=== PATIENT | male | born 1985 | race Caucasian/White ===

== ENCOUNTER 2018-10-09 06:51 | Emergency (ER) | payer OTHER, SELFPAY ==
[2018-10-09 07:09] VITALS: BP 148/91; PULSE 72; RESP 20; TEMP 36.4; O2SAT 98; BMI 32.5
--- NOTE | 2018-10-09 07:13 | DI.RAD.S_ITS ---
PROCEDURE: XR CHEST 2V INDICATIONS: cough TECHNIQUE: 2 views of the chest were acquired. COMPARISON: None. FINDINGS: Surgical changes and devices: None. Lungs and pleura: No pleural effusions or pneumothorax. Lungs are clear. Mediastinum: Mediastinal contours are normal. Heart size is normal. Bones and chest wall: No suspicious bony abnormalities. Soft tissues appear unremarkable. IMPRESSION: No acute cardiopulmonary findings. Dictated by: Yasemin Pat M.D. on 10/09/2018 at 8:01 Approved by: Yasemin Pat M.D. on 10/09/2018 at 8:02
--- NOTE | 2018-10-09 07:29 | ED.URI ---
HPI - URI/Sore Throat General Chief Complaint: Upper Respiratory Symptoms Stated Complaint: Cold X 1 mo, sinus pressure unable to sleep Time Seen by Provider: 10/09/18 07:21 Source: patient Mode of arrival: ambulatory Limitations: no limitations History of Present Illness HPI Narrative: This is a 33-year-old male who comes to the emergency department complaint of upper respiratory infection but also chest cold. Patient states a month ago he started having cold in his chest, he had a cough that slowly improved but never resolved. He had vomiting and diarrhea for about 48 hr and then not resolved. Since then he started having drainage from his nose that is been green was sometimes black flecks, he states that he has been very stuffy and had sinus pressure and pain. He is not aware of any fevers. He has had fullness in his ears but no pain. He has not had any wound nausea, vomiting diarrhea or constipation. He denies any urinary issues. Patient states yesterday when he was playing with his kids he felt very short of breath. But walking are normal exertion does not bother him. Patient has been using a Neti pot, Sudafed as well as Mucinex without any improvement. Related Data Previous Rx's Medication Instructions Recorded azithromycin See Label Instructions .ROUTE 10/09/18 .COMPLEX #6 tab Allergies Allergy/AdvReac Type Severity Reaction Status Date / Time amoxicillin [AMOXICILLIN] Allergy Intermediate Unverified 01/13/18 12:36 sulfamethoxazole Allergy Intermediate Unverified 01/13/18 12:36 [From ] trimethoprim [From ] Allergy Intermediate Unverified 01/13/18 12:36 Review of Systems Review of Systems All systems reviewed & are unremarkable except as noted in HPI and below Constitutional Denies chills, Denies fever(s) and Denies headache(s) ENT Ears, Nose, Mouth, and Throat: Denies otalgia (Has pressure in years), Denies headache(s), Denies hoarseness, Reports nasal congestion, Reports nasal discharge, Reports post nasal drip, Reports sinus pain and Reports sinus pressure Cardiovascular Denies chest pain, Denies syncope, Denies edema, Reports dyspnea (once yesterday) and Denies dyspnea on exertion Respiratory Reports chest congestion, Reports cough, Denies hemoptysis, Denies pain on inspiration, Reports dyspnea (once yesterday), Denies dyspnea on exertion and Denies wheezing Gastrointestinal Gastrointestinal: Denies abdominal pain, Denies change in bowel habits, Denies diarrhea, Denies nausea and Denies vomiting Genitourinary Denies difficulty urinating Neurologic Denies syncope and Denies headache(s) Allergic/Immunologic Denies wheezing PFSH Medical History Hypothyroid (Acute) Surgical History Hx of appendectomy (Acute) Social History Smoking Status: Never smoker Exam Narrative Exam Narrative: GEN: well nourished, well appearing male, alert and oriented x 3, patient appears to be in mild distress. HEENT: Atraumatic, pupils are equal round reactive to light, extraocular movements are intact, nares have thick greenish drainage, TMs are clear with mild fluid bilaterally, no erythema, no bulge, there is no conjunctival pallor. Throat is clear without any exudates, erythema, tonsillar enlargement or uvular deviation, patient has tenderness over the sinuses bilaterally. HEART: Regular rate and rhythm without murmur, clicks, rubs. No carotid bruits, pulses are equal in upper and lower extremities LUNGS:Lungs clear to auscultation, no wheezes, rales, crackles, chest moves symmetrically, no CT tachypnea. No accessory muscle use. ABD:bowel sounds normal, soft, non-tender, no guarding, rebound, rigidity, no masses noted, no hepatosplenomegaly MSCL: Non-tender, no muscle atrophy, muscles strength 5/5 upper and lower extremities, full range of motion, normal gait NEURO:CN 2-12 intact, sensation normal Initial Vital Signs Initial Vital Signs: Vital Signs Temperature 97.6 F 10/09/18 07:09 Pulse Rate 72 10/09/18 07:09 Respiratory Rate 20 10/09/18 07:09 Blood Pressure 148/91 H 10/09/18 07:09 Pulse Oximetry 98 10/09/18 07:09 Course Orders Ordered: ED Orders 10/09/18 07:13 CXR [XR chest 2V] Stat Vital Signs - 8 hr 10/09/18 07:09 Temperature 97.6 F Pulse Rate 72 Respiratory Rate 20 Blood Pressure 148/91 H Pulse Oximetry 98 MDM - URI/Sore Throat Imaging Data Chest x-ray: Attestation: I personally reviewed and interpreted this imaging study as follows: My impression: no pneumonia, no infiltrate. no cardiomegaly, normal mediastinum, no fx, no pneumothorax noted. no free air. [facility] Narrative Medical decision making narrative: Patient has symptoms concerning for sinusitis. He has had about a month of symptoms with worsening and now purulent like a greenish discharge. Patient does have some changes on physical exam. He has been afebrile discussed adding Afrin to his Sudafed, Neti pot and Mucinex combination. He has also been using intranasal steroid treatment. If this is unsuccessful did give him a prescription to fill for antibiotics for sinusitis. Discharge Plan Departure Patient Disposition: Home Clinical Impression: Sinusitis Discharge Date/Time: 10/09/18 07:44 Interventions: ED Discharge Assessment Last Done: 10/09/18 07:43 Instructions: DI for Sinusitis Activity Restrictions/Additional Instructions: Follow up in 3-5 days if no improvement in symptoms. Call for an appointment. Take antibiotics until gone. Take 2 tablets together the first day, then 1 tablet daily x 4 days. Continue to use neti-pot, sudafed and mucinex for symptomatic treatment. Return to the emergency department for any fevers greater than 100.4, worsening symptoms, facial swelling, sudden severe headaches, persistent vomiting, difficulty breathing, chest pain or other new or concerning symptoms. Prescriptions: New azithromycin 250 mg tablet See Label Instructions .ROUTE .COMPLEX Qty: 6 RF: 0
--- NOTE | 2018-10-09 07:37 | ED_ITS ---
HPI - URI/Sore Throat General Chief Complaint: Upper Respiratory Symptoms Stated Complaint: Cold X 1 mo, sinus pressure unable to sleep Time Seen by Provider: 10/09/18 07:21 Source: patient Mode of arrival: ambulatory Limitations: no limitations History of Present Illness HPI Narrative: This is a 33-year-old male who comes to the emergency department complaint of upper respiratory infection but also chest cold. Patient states a month ago he started having cold in his chest, he had a cough that slowly improved but never resolved. He had vomiting and diarrhea for about 48 hr and then not resolved. Since then he started having drainage from his nose that is been green was sometimes black flecks, he states that he has been very stuffy and had sinus pressure and pain. He is not aware of any fevers. He has had fullness in his ears but no pain. He has not had any wound nausea, vomiting diarrhea or constipation. He denies any urinary issues. Patient states yesterday when he was playing with his kids he felt very short of breath. But walking are normal exertion does not bother him. Patient has been using a Neti pot, Sudafed as well as Mucinex without any improvement. Related Data Previous Rx's Medication Instructions Recorded azithromycin See Label Instructions .ROUTE 10/09/18 .COMPLEX #6 tab Allergies Allergy/AdvReac Type Severity Reaction Status Date / Time amoxicillin [AMOXICILLIN] Allergy Intermediate Unverified 01/13/18 12:36 sulfamethoxazole Allergy Intermediate Unverified 01/13/18 12:36 [From ] trimethoprim [From ] Allergy Intermediate Unverified 01/13/18 12:36 Review of Systems Review of Systems All systems reviewed & are unremarkable except as noted in HPI and below Constitutional Denies chills, Denies fever(s) and Denies headache(s) ENT Ears, Nose, Mouth, and Throat: Denies otalgia (Has pressure in years), Denies headache(s), Denies hoarseness, Reports nasal congestion, Reports nasal discharge, Reports post nasal drip, Reports sinus pain and Reports sinus pressure Cardiovascular Denies chest pain, Denies syncope, Denies edema, Reports dyspnea (once yesterday ) and Denies dyspnea on exertion Respiratory Reports chest congestion, Reports cough, Denies hemoptysis, Denies pain on inspiration, Reports dyspnea (once yesterday), Denies dyspnea on exertion and Denies wheezing Gastrointestinal Gastrointestinal: Denies abdominal pain, Denies change in bowel habits, Denies diarrhea, Denies nausea and Denies vomiting Genitourinary Denies difficulty urinating Neurologic Denies syncope and Denies headache(s) Allergic/Immunologic Denies wheezing PFSH Medical History Hypothyroid (Acute) Surgical History Hx of appendectomy (Acute) Social History Smoking Status: Never smoker Exam Narrative Exam Narrative: GEN: well nourished, well appearing male, alert and oriented x 3 , patient appears to be in mild distress. HEENT: Atraumatic, pupils are equal round reactive to light, extraocular movements are intact, nares have thick greenish drainage, TMs are clear with mild fluid bilaterally, no erythema, no bulge, there is no conjunctival pallor. Throat is clear without any exudates, erythema, tonsillar enlargement or uvular deviation, patient has tenderness over the sinuses bilaterally. HEART: Regular rate and rhythm without murmur, clicks, rubs. No carotid bruits , pulses are equal in upper and lower extremities LUNGS:Lungs clear to auscultation, no wheezes, rales, crackles, chest moves symmetrically, no CT tachypnea. No accessory muscle use. ABD:bowel sounds normal, soft, non-tender, no guarding, rebound, rigidity, no masses noted, no hepatosplenomegaly MSCL: Non-tender, no muscle atrophy, muscles strength 5/5 upper and lower extremities, full range of motion, normal gait NEURO:CN 2-12 intact, sensation normal Initial Vital Signs Initial Vital Signs: Vital Signs Temperature 97.6 F 10/09/18 07:09 Pulse Rate 72 10/09/18 07:09 Respiratory Rate 20 10/09/18 07:09 Blood Pressure 148/91 H 10/09/18 07:09 Pulse Oximetry 98 10/09/18 07:09 Course Orders Ordered: ED Orders 10/09/18 07:13 CXR [XR chest 2V] Stat Vital Signs - 8 hr 10/09/18 07:09 Temperature 97.6 F Pulse Rate 72 Respiratory Rate 20 Blood Pressure 148/91 H Pulse Oximetry 98 MDM - URI/Sore Throat Imaging Data Chest x-ray: Attestation: I personally reviewed and interpreted this imaging study as follows: My impression: no pneumonia, no infiltrate. no cardiomegaly, normal mediastinum, no fx, no pneumothorax noted. no free air. [facility] Narrative Medical decision making narrative: Patient has symptoms concerning for sinusitis. He has had about a month of symptoms with worsening and now purulent like a greenish discharge. Patient does have some changes on physical exam. He has been afebrile discussed adding Afrin to his Sudafed, Neti pot and Mucinex combination. He has also been using intranasal steroid treatment. If this is unsuccessful did give him a prescription to fill for antibiotics for sinusitis. Discharge Plan Departure Patient Disposition: Home Clinical Impression: Sinusitis Discharge Date/Time: 10/09/18 07:44 Interventions: ED Discharge Assessment Last Done: 10/09/18 07:43 Instructions: DI for Sinusitis Activity Restrictions/Additional Instructions: Follow up in 3-5 days if no improvement in symptoms. Call for an appointment. Take antibiotics until gone. Take 2 tablets together the first day, then 1 tablet daily x 4 days. Continue to use neti-pot, sudafed and mucinex for symptomatic treatment. Return to the emergency department for any fevers greater than 100.4, worsening symptoms, facial swelling, sudden severe headaches, persistent vomiting, difficulty breathing, chest pain or other new or concerning symptoms. Prescriptions: New azithromycin 250 mg tablet See Label Instructions .ROUTE .COMPLEX Qty: 6 RF: 0
== END 2018-10-09 07:44 | disposition home or self-care (01) ==
PROVIDERS: Emergency Provider Emergency Medicine
DX: J01.90 Acute sinusitis, unspecified (principal)
CPT/HCPCS: 71046; 99282; 99283

== ENCOUNTER 2019-05-27 02:29 | Emergency (ER) | payer OTHER, SELFPAY ==
[2019-05-27 02:30] VITALS: BP 183/107; PULSE 84; RESP 16; TEMP 36.8; O2SAT 99; BMI 31.0
--- NOTE | 2019-05-27 02:41 | ED.GENADULT ---
HPI - General Adult General Chief complaint: Hypertension Stated complaint: states having trouble with BP Time Seen by Provider: 05/27/19 02:30 Source: patient Mode of arrival: ambulatory Limitations: no limitations History of Present Illness HPI narrative: 33-year-old male here for evaluation of high blood pressure. Patient states that 2 days ago he was diagnosed with high blood pressure after he had an incident where he had to be taken to an outside facility. Was able to review those notes that he did have a blood pressure at that time of greater than 200 over greater than 100. According to the note his blood pressure did improve after time in the emergency department. He had a follow-up with his medical department and was started on 20 mg of lisinopril. Patient states that he was told by his medical department that he could take 20-40 mg of lisinopril a day. Yesterday was his 1st dose of those medications. He took 20 mg in the afternoon. He states that he was woken up at approximately midnight not feeling well. Had a slight headache. Took his blood pressure and it was again greater than 200 systolic. He denies any fevers. He took another 20 mg of lisinopril and came into the emergency department. Related Data Home Medications Medication Instructions Recorded Confirmed levothyroxine [Synthroid] 125 mcg PO DAILY 05/27/19 05/27/19 lisinopril 20 mg PO DAILY 05/27/19 05/27/19 Allergies Allergy/AdvReac Type Severity Reaction Status Date / Time amoxicillin [AMOXICILLIN] Allergy Intermediate Verified 05/27/19 02:41 sulfamethoxazole Allergy Intermediate Verified 05/27/19 02:41 [From SEPTRA] trimethoprim [From SEPTRA] Allergy Intermediate Verified 05/27/19 02:41 Review of Systems Constitutional Denies fever(s) and Reports headache(s) Eyes Denies blurry vision and Denies diplopia ENT Ears, Nose, Mouth, and Throat: Reports headache(s) Cardiovascular Denies chest pain and Denies dyspnea Respiratory Denies dyspnea Gastrointestinal Gastrointestinal: Denies abdominal pain Musculoskeletal Denies myalgias and Denies arthralgias Integumentary/Breasts Denies rash Neurologic Denies behavioral changes and Reports headache(s) Psychiatric Denies behavioral changes Hematologic/Lymphatic Denies easy bleeding and Denies easy bruising COUNT INCLUDES THE [facility] Medical History Hypertension (Acute) Hypothyroid (Acute) Surgical History (Updated 10/09/18 @ 07:33 by Aylin Abraham DO) Hx of appendectomy (Acute) Social History Smoking Status: Never smoker Social History Smoking Status: Never smoker Exam Initial Vital Signs Initial Vital Signs: Vital Signs Temperature 98.3 F 05/27/19 02:30 Pulse Rate 84 05/27/19 02:30 Respiratory Rate 16 05/27/19 02:30 Blood Pressure 183/107 H 05/27/19 02:30 Pulse Oximetry 99 05/27/19 02:30 Const General: cooperative, well developed, well groomed and No acute distress Orientation: alert, awake and oriented x3 HENMT Head: normal to inspection and normocephalic Resp Effort & Inspection: normal respiratory effort Cardio Rate: regular rate Rhythm: regular rhythm GI Inspection: non-distended Palpation: soft Skin Lesions: no lesions Rashes: no rashes Neuro General: alert and awake Cognition: normal cognition Speech: speech normal Gait: normal gait Motor: muscle tone normal throughout Extrem General: normal to inspection and capillary refill normal Psych Appearance: grossly normal and well kempt Course Orders Ordered: ED Orders 05/27/19 02:41 EKG-12 Lead Stat Vital Signs - 8 hr 05/27/19 02:30 Temperature 98.3 F Pulse Rate 84 Respiratory Rate 16 Blood Pressure 183/107 H Pulse Oximetry 99 Medical Decision Making ECG Data Attestation: I personally reviewed and interpreted this ECG as follows: Prior ECG tracings: not available for review Interpretation: Sinus rhythm Ventricular rate is 70 Normal axis Normal QRS Normal QTC No ST T wave changes MDM Narrative Medical decision making narrative: Patient is nontoxic. Patient has no signs of end-organ dysfunction to include ACS, ICH, pulmonary edema. his blood pressure was elevated upon arrival however after. Time here in the emergency department and did improve. His EKG is unremarkable. Will hold on further workup for now. Will have him take his blood pressure at home. Eleven continue to take his blood pressure medications. He expressed understanding and agreement with plan. Discharge Plan Departure Patient Disposition: Home Clinical Impression: Hypertension Qualifiers: Hypertension type: unspecified Qualified Code(s): I10 - Essential (primary) hypertension Instructions: DI for High Blood Pressure Activity Restrictions/Additional Instructions: Continue to take all of your medications as directed. Take your blood pressure at home like we discussed. Return to the emergency department for any new or worsening symptoms Prescriptions: No Action lisinopril 20 mg tablet 20 mg PO DAILY RF: 0 levothyroxine [Synthroid] 125 mcg tablet 125 mcg PO DAILY RF: 0
[2019-05-27 03:07] VITALS: BP 155/87; PULSE 73; O2SAT 98
== END 2019-05-27 03:09 | disposition home or self-care (01) ==
PROVIDERS: Emergency Provider Emergency Medicine
DX: I10 Essential (primary) hypertension (principal)
CPT/HCPCS: 93005; 99282; 99283

== ENCOUNTER 2020-05-07 15:54 | Emergency (ER) | payer OTHER, SELFPAY ==
[2020-05-07 16:05] VITALS: BP 137/77; PULSE 82; RESP 18; TEMP 36.6; O2SAT 98
[2020-05-07] MEDS: DEXAMETHASONE 10 MG/ML VIAL PO (18:01)
[2020-05-07] MEDS: IBUPROFEN 400 MG TABLET PO (18:02)
--- NOTE | 2020-05-07 22:40 | ED_ITS ---
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 Patient reports is feeling slightly malaise today. He noticed white patch on right-sided throat when he came home from work. Patient denies fever, chills, nausea or vomiting, diarrhea, loss of sense of taste or smell, unusual rash, voice change, breathing difficulty, chest pain, near syncopal episode. Patient denies recent travel or exposure to possible Covid positive patients. Patient reports pain is 7/10 and had taken ibuprofen this morning. He reports is able to tolerate fluids but hurts to swallow. Related Data Home Medications Medication Instructions Recorded Confirmed levothyroxine [Synthroid] 125 mcg PO DAILY 05/27/19 05/27/19 lisinopril 20 mg PO DAILY 05/27/19 05/27/19 Allergies Allergy/AdvReac Type Severity Reaction Status Date / Time amoxicillin [AMOXICILLIN] Allergy Intermediate Verified 05/07/20 16:07 sulfamethoxazole Allergy Intermediate Verified 05/07/20 16:07 [From ] trimethoprim [From ] Allergy Intermediate Verified 05/07/20 16:07 Review of Systems <WILL Espinoza - Last Filed: 05/07/20 22:54> Review of Systems Narrative: General: Denies fever, chills, (+) fatigue, malaise, sweats. HEENT: HPI Respiratory: Denies dyspnea, cough, wheezing, hemoptysis, sputum. Cardiovascular: Denies chest pain, palpitations, orthopnea, edema. Gastrointestinal: Denies nausea, vomiting, abdominal pain, diarrhea, constipation, melena. : Denies dysuria, frequency, incontinence, hematuria, urinary retention. Musculoskeletal: Denies weakness, joint pain or bony pain. Skin: Denies rash, skin lesions, or other. Neurologic: Denies weakness, headache, numbness, change in speech, confusion, seizures, incoordination. Psychiatric: No concerning psychosocial issues. 12-point review of systems is negative except for those stated above. Patient History <WILL Espinoza - Last Filed: 05/07/20 22:54> Medical History Hypertension (Acute) Hypothyroid (Acute) Surgical History Hx of appendectomy (Acute) Social History Smoking Status: Never smoker Smoking Status: Never smoker alcohol intake frequency: holidays/special occasions only Substance Use Type: does not use Exam <WILL Espinoza - Last Filed: 05/07/20 22:54> Narrative Exam Narrative: GEN: Alert, oriented x 3, well appearing and nourished, and in no acute distress. Head: Normal cephalic, atraumatic. No scalp or temporal tenderness, palpable mass or rash. EYES: Pupils are equal, round, and reactive to light and accommodation. Extraocular muscles are intact bilaterally. There is no subconjunctival hemorrhage, exudate and sclera non-icteric. ENT: Bilateral auditory canals and tympanic membranes clear. Hearing grossly intact. Nose without bleeding, purulent discharge or deviation. Mucous membrane moist, no mucosal lesion. Throat without erythema, mild tonsillar hypertrophy without overt exudate. Uvula in midline, airway patent. No muffled voice. Neck: Trachea in midline. No JVD, tender to palpate in anterior cervical lymphnodes. No masses or thyroid megaly. Supple, non-tender and no meningeal signs. CARDIAC: Normal regular rate and rhythm without murmurs, gallops, or rubs. No chest wall tenderness. No peripheral edema, cyanosis or pallor. Capillary refill is less than 2 seconds. RESPIRATORY: Lungs are clear to auscultate bilaterally. No cough, wheezes, rales, or rhonchi. No stridor, respiratory distress, increase work of breathing, or accessary muscle used. ABD: Abdomen soft, nontender and non-distended. No guarding or rebound tenderness to palpate. Bowel sounds are normal in all 4 quadrants. There is no palpable masses or organomegaly. EXT: Full painless ROM of all extremities with no loss of sensation, strength, effusion or edema. SKIN: Warm, dry, normal color for patient. No erythema, lesions or rash over visible areas. BACK: Nontender without deformity or crepitance. No flank tenderness. NEUROLOGICAL: Alert and oriented to place, time and person. Sensation and motor function intact bilaterally. No facial droops, dysphasia. PSYCHIATRIC: Good judgement and reason, without hallucinations, abnormal affect or abnormal behaviors during the examination. Patient is not suicidal. Initial Vital Signs Initial Vital Signs: Vital Signs Temperature 97.9 F 05/07/20 16:05 Pulse Rate 82 05/07/20 16:05 Respiratory Rate 18 05/07/20 16:05 Blood Pressure 137/77 05/07/20 16:05 Pulse Oximetry 98 05/07/20 16:05 <Uche Melgoza MD - Last Filed: 05/08/20 08:15> Initial Vital Signs Initial Vital Signs: Vital Signs Temperature 97.9 F 05/07/20 16:05 Pulse Rate 82 05/07/20 16:05 Respiratory Rate 18 05/07/20 16:05 Blood Pressure 137/77 05/07/20 16:05 Pulse Oximetry 98 05/07/20 16:05 Scores <WILL Espinoza - Last Filed: 05/07/20 22:54> GCS Suzi coma scale eye opening: Spontaneous Suzi coma scale verbal response: Orientated Suzi coma scale motor response: Obey commands [place] coma scale total score: 15 qSOFA Altered Mental Status (GCS <15): No Respiratory rate greater than/equal to 22: No Systolic blood pressure less than or equal to 100: No qSOFA Total: 0 0-1 Not High Risk 1-3 High risk Course <WILL Espinoza - Last Filed: 05/07/20 22:54> Orders Ordered: Discontinued Medications Dexamethasone (Decadron) 10 mg PO NOW ONE Stop: 05/07/20 17:45 Last Admin: 05/07/20 18:01 Dose: 10 mg Documented by: GLADIS Ibuprofen (Advil) 400 mg PO NOW ONE Stop: 05/07/20 17:45 Last Admin: 05/07/20 18:02 Dose: 400 mg Documented by: GLADIS Vital Signs Vital signs: Vital Signs - 8 hr 05/07/20 16:05 Temperature 97.9 F Pulse Rate 82 Respiratory Rate 18 Blood Pressure 137/77 Pulse Oximetry 98 <Uche Melgoza MD - Last Filed: 05/08/20 08:15> Orders Ordered: Discontinued Medications Dexamethasone (Decadron) 10 mg PO NOW ONE Stop: 05/07/20 17:45 Last Admin: 05/07/20 18:01 Dose: 10 mg Documented by: GLADIS Ibuprofen (Advil) 400 mg PO NOW ONE Stop: 05/07/20 17:45 Last Admin: 05/07/20 18:02 Dose: 400 mg Documented by: GLADIS Vital Signs Vital signs: Vital Signs - 8 hr 05/07/20 16:05 Temperature 97.9 F Pulse Rate 82 Respiratory Rate 18 Blood Pressure 137/77 Pulse Oximetry 98 MDM - URI/Sore Throat <WILL Espinoza - Last Filed: 05/07/20 22:54> Differential Diagnosis Differential diagnosis: Likely pharyngitis and other (Strep throat infection, mononucleosis, pharyngeal abscess) Medical Records Attestation: I reviewed the patient's medical records. Lab Data Attestation: I reviewed the patient's lab results. Labs: Point of Care Testing Rapid Strep A Negative MDM Narrative Medical decision making narrative: This is a 34-year-old male presents to ED with 2 day duration of sore throat. Patient is afebrile with within normal vital signs. Throat appears to be slightly hypertrophic without overt exudates. Right-sided anterior cervical lymph adepathy to palpate. No muffled voice. Patient does not appears to be toxic. There is no signs of dyspnea, increased work of breathing. Strep swab was negative. Patient's symptoms is likely due to viral pharyngitis and he was treated with 1 dose of Decadron and ibuprofen for sore throat. Advised to use warm salt water gargles and to take [id number] Tylenol or Motrin as needed for pain. Patient advised to hydrate adequately. Return precautions were discussed with patient and patient verbalized understanding and agreement with the treatment plan. <Uche Melgoza MD - Last Filed: 05/08/20 08:15> Lab Data Labs: Point of Care Testing Rapid Strep A Negative Discharge Plan Departure Patient Disposition: Home Clinical Impression: Pharyngitis Qualifiers: Pharyngitis/tonsillitis etiology: other specified organisms Qualified Code(s): J02.8 - Acute pharyngitis due to other specified organisms Discharge Date/Time: 05/07/20 18:34 Instructions: DI for Pharyngitis/Tonsillopharyngitis -- Adult Activity Restrictions/Additional Instructions: You have been diagnosed with [pharyngitis. Strep throat test is negative.]. What to do: *Take your medications as directed. You were medicated with a dose of Steroid before discharge to home. Please take [id number] Tylenol and or Motrin as needed for discomfort. Tylenol 650-1000 mg up to 3 to 4 times a day as needed for pain. Ibuprofen 400-600 mg as needed for pain up to 3 times a day with food to decrease GI irritation. Warm salt water gargle helps with sore throat. *Follow up with your primary care provider in 2-3 days, call for an appointment. Let them know you were seen in the ED and that we asked you to be seen in follow up. *Return to ED if you have any new, worsening, or concerning symptoms, such as [chest pain, breathing difficulty, unable to tolerate fluids, worsening pain, unusual rash, high fever or any acute concerns]. Prescriptions: No Action lisinopril 20 mg tablet 20 mg PO DAILY RF: 0 levothyroxine [Synthroid] 125 mcg tablet 125 mcg PO DAILY RF: 0 Referrals: [facility] [Outside]
== END 2020-05-07 18:34 | disposition home or self-care (01) ==
PROVIDERS: Emergency Provider Nurse Practitioner Family
DX: J02.8 Acute pharyngitis due to other specified organisms (principal); I10 Essential (primary) hypertension; E03.9 Hypothyroidism, unspecified
CPT/HCPCS: 87880; 99283; J1100

== ENCOUNTER → 2021-09-05 18:45 | Outpatient (CLI) | payer OTHER, SELFPAY ==
--- NOTE | 2021-09-05 | DI.MRI.S_ITS ---
PROCEDURE: MR SHOULDER RT WO CON INDICATIONS: Displaced fracture of greater tuberosity TECHNIQUE: Noncontrast oblique coronal T1 spin echo and T2 fast spin echo with fat saturation, oblique sagittal T1 spin echo and T2 fast spin echo with fat saturation, axial T1 spin echo and T2 fast spin echo with fat saturation through the shoulder. COMPARISON: None. FINDINGS: Image quality: Excellent. Rotator cuff: Greater tuberosity fracture is seen as described below, involving the supraspinatus tendon insertion and the anterior portion of the infraspinatus tendon insertion. There is associated multifocal low-grade intrasubstance and articular sided tearing of the supraspinatus and infraspinatus tendons. The teres minor and subscapularis tendons appear to be intact. There is no significant muscle atrophy. Bones and bursae: There is a comminuted fracture involving the anterior portion of the greater tuberosity overall measuring approximately 2.9 x 1.3 by 2.0 cm. A 1.6 x 0.7 x 0.8 cm osseous fragment is displaced superiorly by up to 0.8 cm. The remaining osseous fragments are not significantly displaced. The fracture involves the supraspinatus tendon insertion in the anterior portion of the infraspinatus tendon insertion. There is mild surrounding osseous edema. The remaining visualized osseous structures are intact. There is mild acromioclavicular joint osteoarthrosis. Small glenohumeral effusion is present. There is a small amount of fluid in the subacromial/subdeltoid bursa. Capsule and soft tissues: There is mild heterogeneity of the posterosuperior labrum without a definite tear identified, possibly representing a labral contusion or mild chronic degeneration. There is mild tendinosis of the intra-articular portion of the biceps long head tendon. There is laxity of the inferior glenohumeral ligament fibers, which are not seen to be continuous with there humeral insertions, consistent with ligamentous avulsion. Fluid is seen extending into the axillary recess. IMPRESSION: 1. Comminuted and mildly displaced fracture of the greater tuberosity of the humerus as described in detail above. A small osseous fragment is superiorly displaced by up to 0.8 cm. The remaining osseous fragments are not significantly displaced. 2. Multifocal low-grade intrasubstance and articular sided tearing of the supraspinatus and infraspinatus tendons adjacent to the greater tuberosity fracture. 3. Humeral avulsion of the inferior glenohumeral ligament with fluid extending into the axillary recess. 4. Mild tendinosis of the biceps long head tendon. 5. Mild heterogeneity of the posterosuperior labrum could represent a small labral contusion versus mild chronic degeneration or possibly a small chronic nondisplaced tear. 6. Mild acromioclavicular joint osteoarthrosis. 7. Small glenohumeral effusion. Small subacromial/subdeltoid bursal effusion. Dictated by: Sloan Pike M.D. on 09/06/2021 at 9:32 Approved by: Sloan Pike M.D. on 09/06/2021 at 10:02
== END ==
PROVIDERS: PCP Student in an Organized Health Care Education/Training Program; Referring Provider Orthopaedic Surgery; Visit Provider Orthopaedic Surgery
DX: S42.251A Displaced fracture of greater tuberosity of right humerus, initial encounter for closed fracture (principal); M19.011 Primary osteoarthritis, right shoulder; M25.411 Effusion, right shoulder; X58.XXXA Exposure to other specified factors, initial encounter
CPT/HCPCS: 73221